=== PATIENT | female | born 1950 | race Caucasian/White ===

== ENCOUNTER 2019-09-29 01:25 | Emergency (ER) | payer MEDICARE, SELFPAY ==
[2019-09-29 01:40] VITALS: BP 139/73; PULSE 93; RESP 20; TEMP 36.8; O2SAT 97; BMI 37.9
--- NOTE | 2019-09-29 02:47 | XRR_ITS ---
PROCEDURE INFORMATION: Exam: XR Left Humerus Exam date and time: 09/29/2019 3:54 AM Age: 68 years old Clinical indication: Injury or trauma; Fall; Initial encounter; Blunt trauma (contusions or hematomas; Arm, upper; Injury date: 09/29/19; Injury details: PT fell; C/O left shoulder pain. Left hand feels numb and tingling TECHNIQUE: Imaging protocol: XR Left humerus Views: AP internal and external rotation and scapular Y-views views. COMPARISON: No relevant prior studies available. FINDINGS: Bones/joints: No acute bony abnormality identified. Mild hypertrophic changes of the acromioclavicular joint. Soft tissues: Normal. XR/[place] [id number] IMPRESSION: 1. No acute bony injury identified. 2. Acromioclavicular arthrosis.
--- NOTE | 2019-09-29 03:11 | W.ED.FALL ---
HPI - Fall General: Chief Complaint: Fall Stated Complaint: L SHOULDER PAIN/FALL Time Seen by Provider: 09/29/19 02:40 History of Present Illness: HPI Narrative: 68-year-old lady who fell at home. She fell forward and catching herself felt her left shoulder pop back . She then felt it slide forward what she describes back into place. After going to bed, she felt it slide out again. It improved with being in a sling at home. She called a friend and had her bring her to the ER. She states that her whole hand on the left side feels a bit numb/tingly. complaint: fall Onset (ago): hour(s) Fall from: standing Fall witnessed: no Place fall occurred: home Loss of consciousness: None Prolonged down time: no Symptoms prior to fall: none Context: tripped/slipped Location of injury - extremities: Left: shoulder Severity: moderate Associated symptoms-after fall: Reports numbness and weakness; Denies chest pain, headache(s), lightheadedness, neck pain or short of breath Review of Systems Const: Denies: fever(s) Eyes: Denies: change in vision ENMT: Denies: hoarseness Card: Denies: chest pain or lightheadedness Resp: Denies: dyspnea, productive cough or hemoptysis Musc: Denies: neck pain Neuro: Denies: headache(s) Physical Exam Const: GENERAL APPEARANCE: well developed ORIENTATION/CONSCIOUSNESS: Yes oriented to person, Yes oriented to place and Yes oriented to time HENMT: COMMON NORMALS: normocephalic, external ears normal and Normal external nose present HEAD & SCALP: normocephalic FACE & SINUS: normal facial exam NOSE: Normal external nose present and No nasal discharge present EXTERNAL EAR: Yes external ears normal MOUTH: tongue normal Eye: COMMON NORMALS: Equal, round and reactive pupils present, EOMs intact bilaterally and conjunctivae normal EYELID: eyelids normal CONJUNCTIVA: Yes conjunctivae normal PUPIL: Yes Equal, round and reactive pupils present Neck/C-Spine: COMMON NORMALS: full ROM GENERAL: No tracheal deviation CERVICAL SPINE: Yes normal cervical lordosis and No Cervical spine tenderness Chest: COMMONS NORMALS: normal inspection of the chest CHEST: No tenderness Resp: COMMON NORMALS: clear to auscultation bilaterally EFFORT & INSPECTION: No tachypneic, No respiratory distress, No retractions, No uses accessory muscles and No tracheal deviation AUSCULTATION: clear to auscultation bilaterally, no rhonchi, no wheezes and lung sounds not diminished Cardio: COMMON NORMALS: regular rate and regular rhythm RATE: regular rate RHYTHM: regular rhythm HEART SOUNDS: no murmurs PERIPHERAL PULSES: radial pulses present GI: INSPECTION: No abdominal distension AUSCULTATION: No Hyperactive bowel sounds present and No Hypoactive bowel sounds present PALPATION: No Guarding due to palpation present (GI) and No Rigid due to palpation PERCUSSION: no dullness to percussion and no tympanic to percussion : COMMON NORMALS: Yes no CVA tenderness BLADDER/KIDNEY EXAM: Yes no CVA tenderness Back/Pelvis: COMMON NORMALS: no CVA tenderness Extremity: OTHER: Examination left shoulder/arm reveals tenderness over the anterior arm. There is tenderness to the anterior shoulder as well. There is no significant deformity. There is no ecchymosis. Range of motion is limited by pain Neuro: SENSORIUM/ORIENTATION: Yes oriented to person, Yes oriented to place and Yes oriented to time Course Vital Signs: Vital signs: Vital Signs Temperature 98.2 F 09/29/19 01:40 Pulse Rate 93 09/29/19 01:40 Respiratory Rate 20 H 09/29/19 01:40 Blood Pressure 139/73 09/29/19 01:40 Pulse Oximetry 97 09/29/19 01:40 MDM - Fall MDM Narrative: Medical decision making narrative: X-rays show an intact glenohumeral joint without fracture. As far as her pain location, the top of the differential would be a biceps strain Discharge Plan Discharge Patient Disposition: Home, Self-Care Clinical Impression: Strain of biceps brachii Condition: Stable Discharge Orders: Discharge Order (Routine); Ordered 09/29/19 Ordered By: Ricardo Cortes Referrals: Bethel Carpio MD [Primary Care Provider] - 4-7 days Discharge Diet: Usual diet Discharge Activity: Limit activity as instructed Patient Instructions: Shoulder Sprain (ED) Activity Restrictions/Additional Instructions: Sling the shoulder up to 5 days. After this, movement is advised. Ice will help with pain. Return for worsening pain, excruciating pain with movement of fingers, development of fever, chest discomfort, other concerning symptoms Coding Level of Care Code ED Jukebox Checker for Chg Fwd Exam Comprehensive
[2019-09-29 04:18] VITALS: BP 121/76; PULSE 92; RESP 18; TEMP 36.6; O2SAT 96
== END 2019-09-29 04:21 | disposition home or self-care (01) ==
PROVIDERS: Emergency Provider Emergency Medicine; PCP Family Medicine
DX: S46.212A Strain of muscle, fascia and tendon of other parts of biceps, left arm, initial encounter (principal); W19.XXXA Unspecified fall, initial encounter
CPT/HCPCS: 12345; 73060; 99282

== ENCOUNTER 2020-04-02 09:47 | Outpatient (CLI) | payer MEDICARE, SELFPAY ==
--- NOTE | 2020-04-02 | XR_ITS ---
WS: [id number] SCREENING DEXA SCAN [facility] CLINICAL INFORMATION: POST MENOPAUSE COMPARISON: None. FINDINGS: The L1-L4 bone mineral density measures 1.266 g/cm2. This corresponds to a T score score of 0.7 and Z score of 1.2. Left femoral neck bone mineral density measures 1.151 g/cm2. This corresponds to a T score of 1.1 and Z score of 1.7. Right femoral neck bone mineral density measures 1.028 g/cm2. This corresponds to a T score 0.2of and Z score of 0.8. Mean femoral neck bone mineral density measures 1.089 g/cm2. This corresponds to a T score of 0.6 and Z score of 1.2. XR/XR DEXA axial skeleton* 81616 IMPRESSION: Normal bone mineralization. Patient's FRAX calculated 10 year probability for major osteoporotic fracture i s 7.4 % and osteoporotic hip fracture is 0.5%.
== END 2020-04-02 09:48 | disposition home or self-care (01) ==
LOC: RADWPI 09:53
PROVIDERS: PCP Family Medicine; Visit Provider Family Medicine
DX: Z78.0 Asymptomatic menopausal state (principal)
CPT/HCPCS: 77080

== ENCOUNTER 2020-05-25 04:42 | Emergency (ER) | payer MEDICARE, SELFPAY ==
[2020-05-25 04:52] VITALS: BP 139/96; PULSE 87; RESP 18; TEMP 36.2; O2SAT 98; BMI 37.9
[2020-05-25] MEDS: lidocaine 1% INJ 20 mL INJECTION (05:56)
--- NOTE | 2020-05-25 05:56 | W.ED.WOUNDLC ---
HPI - Wound/Laceration General: Chief Complaint: Wound/Laceration Stated Complaint: thumb lac Time Seen by Provider: 05/25/20 04:57 History of Present Illness: HPI narrative: 69-year-old female presenting after slipping in her bathroom, cutting her left thumb. She is on Xarelto, and has had continued bleeding. Onset (ago): minute(s) Extremity Location: Left: hand Place: home Patient tetanus UTD: Yes Context: accidental Associated symptoms: Reports no associated symptoms; Denies chills or fever(s) Review of Systems Const: Denies: fever(s) or chills Eyes: Denies: change in vision Card: Denies: chest pain Resp: Denies: dyspnea PFSH ED PFSH: Medical History (Updated 05/25/20 @ 05:41 by Ricardo Cortes DO) Chest pain Family History Grandfather Myocardial infarction Other Cancer Stroke Social History Smoking and tobacco status: former smoker Physical Exam Const: COMMON NORMALS: no acute distress and patient oriented x3 Eye: COMMON NORMALS: Equal, round and reactive pupils present and EOMs intact bilaterally PUPIL: Yes Equal, round and reactive pupils present Chest: COMMONS NORMALS: normal inspection of the chest Resp: COMMON NORMALS: normal respiratory effort, No retractions, No use of accessory muscles and clear to auscultation bilaterally AUSCULTATION: clear to auscultation bilaterally Cardio: COMMON NORMALS: regular rate and regular rhythm RATE: regular rate RHYTHM: regular rhythm Extremity: NARRATIVE EXTREMITY EXAM: 1.5 cm laceration to the palmar thumb on the left Neuro: COMMON NORMALS: patient oriented x3 Procedures Laceration Laceration 1: Site: hand Side (If applicable): left Size (cm): 1.5 Description: linear Depth: simple, single layer Local Anesthetic: lidocaine 1% Amount of anesthesia used (mL): 3 Pre-repair: wound explored, irrigated extensively and deep structures intact Skin layer closed with: nylon Size (cm): 4-0 Number of sutures: 3 Technique: simple, interrupted Course Vital Signs: Vital signs: Vital Signs Temperature 97.2 F L 05/25/20 04:52 Pulse Rate 87 05/25/20 04:52 Respiratory Rate 18 05/25/20 04:52 Blood Pressure 139/96 05/25/20 04:52 Pulse Oximetry 98 05/25/20 04:52 Discharge Plan Discharge Patient Disposition: Home Clinical Impression: Laceration Condition: Stable Prescriptions: No Action Allergy Relief (cetirizine) 10 mg capsule 10 mg PO DAILY RF: 0 diphenhydramine HCl [Benadryl] 25 mg capsule 25 mg PO .HS RF: 0 sumatriptan succinate [Imitrex] 100 mg tablet See Rx Instructions PO .COMPLEX RF: 0 magnesium oxide 200 mg magnesium tablet 200 mg PO BID RF: 0 potassium gluconate 600 mg (99 mg) tablet 600 mg PO DAILY RF: 0 propranolol 20 mg tablet 20 mg PO BID RF: 0 ranitidine HCl 150 mg tablet 150 mg PO DAILY RF: 0 simvastatin 40 mg tablet 40 mg PO DAILY RF: 0 acetaminophen [Tylenol Arthritis Pain] 650 mg tablet extended release 650 mg PO Q12H RF: 0 fenofibrate nanocrystallized [Tricor] 48 mg tablet 48 mg PO DAILY RF: 0 Xarelto 20 mg tablet 20 mg PO DAILY RF: 0 ibuprofen 200 mg capsule 200 mg PO Q6H PRNRF: 0 Excedrin Extra Strength 250-250-65 mg tablet 1 tab PO Q6H PRNRF: 0 calcium carbonate [Calcium 600] 600 mg calcium (1,500 mg) tablet 600 mg PO DAILY RF: 0 vitamin B complex [B Complex-Vitamin B12] Tablet 1 tab PO DAILY RF: 0 gelatin 650 mg capsule 1,300 mg PO DAILY RF: 0 nitroglycerin 0.4 mg tablet, sublingual 0.4 mg SUBLINGUAL Q5M PRN (Reason: chest pain) Qty: 50 RF: 2 Discharge Orders: Discharge ED (Routine); Ordered 05/25/20 Ordered By: Ricardo Cortes Referrals: Bethel Carpio MD [Primary Care Provider] - Patient Instructions: Opioid Safety Coding Level of Care Code ED [employer] Powerplant Supervisor for Suze Rachel
[2020-05-25] MEDS: neomycin-poly-bacitracin oint 0.9 gm Pkt 1 APPLIC TOPICAL (05:59)
[2020-05-25 06:04] VITALS: BP 138/94; PULSE 85; RESP 17; O2SAT 99
== END 2020-05-25 06:04 | disposition home or self-care (01) ==
PROVIDERS: Emergency Provider Emergency Medicine; PCP Family Medicine
DX: S61.012A Laceration without foreign body of left thumb without damage to nail, initial encounter (principal); Z87.891 Personal history of nicotine dependence; W01.0XXA Fall on same level from slipping, tripping and stumbling without subsequent striking against object, initial encounter
CPT/HCPCS: 12001; 99282

== ENCOUNTER → 2021-07-20 14:25 | Outpatient (BNVA) | payer MEDICARE, SELFPAY | PROVIDERS: PCP Family Medicine; Visit Provider Internal Medicine | DX: I48.21 Permanent atrial fibrillation (principal); R07.9 Chest pain, unspecified; Z87.891 Personal history of nicotine dependence | CPT/HCPCS: 99213; 99214 ==

== ENCOUNTER 2021-09-02 06:56 | Outpatient (CLI) | payer MEDICARE, SELFPAY ==
[2021-09-02 07:22] VITALS: BMI 40.3
--- NOTE | 2021-09-02 07:26 | ECG_ITS ---
[facility] Test Date: 2021-09-02 Pat Name: Maryana German Department: Room: Gender: Female Dehairer: Zena Londono : 1950 Requested By: Bethel Rizo Order Number: [id number] Lionel MD: Chapis Pierre M.D. Interpretive Statements NAME OF STUDY: LEXISCAN SESTAMIBI STRESS TEST INDICATION: Chest Pain PROCEDURE: At the baseline, the blood pressure was 114/74 mmHg, oxygen saturation 97% with a heart rate of 95 bpm. The electrocardiogram showed atrial fibrillation with heart rate of 95 bpm, normal axis. Poor anterior R wave progression. Nonspecific ST changes. The Lexiscan was infused over a period of 20 seconds. A total of 0.4 milligrams of Lexiscan was infused. The stress phase was continued for a total of 5 minutes. Heart rate at the end of the stress phase was 112 bpm, oxygen saturation 97% with a blood pressure of 104/71 mmHg. The EKG at the peak infusion revealed atrial fibrillation with rapid ventricle response. No significant ST-T wave changes. The study was terminated due to protocol completion. Sestamibi was injected 20 seconds after the Lexiscan infusion. Blood pressure at the end of the recovery phase was 117/76 mmHg, oxygen saturation 87% with a heart rate of 108 beats per minute. CONCLUSION: 1. No significant EKG changes with the LexiScan infusion. 2. No LexiScan induced chest pain or cardiac arrhythmia. 3. Normal blood pressure and heart rate response. 4. Sestamibi/sestamibi perfusion scan pending; see separate report. Electronically Signed On 09-06-2021 15:40:56 CDT by Chapis Pierre M.D. [id number]
--- NOTE | 2021-09-02 07:27 | NMCV_ITS ---
NM cecelia perf SPECT r/s* [id number] Maryana German Age: 70 Gender: F : 1950 Exam Date: 09/02/2021 07:27 Ordering Phys: Bethel Carpio MD Technologist: DOUG Hodges Exam Location: [facility] Indications: CHEST PAIN STRESS TEST [facility] IMAGE PROTOCOL Rest/Stress 1 Lexiscan Day Radiopharmaceutical Dose (mCi) Administration Site Administered by Rest: Tc-99m 10.8 IV DOUG Hoffmann Sestamibi Stress:Tc-99m 32.5 IV DOUG Hoffmann Sestamibi Rest: 02-Sep-2021 60 Discovery 630 Stress: 02-Sep-2021 30 Discovery 630 0.4mg Lexiscan. Supine position only as patient was unable to lay prone. SPECT RESULTS Technical Quality: Excellent Raw Data Analysis: Normal Image Corrections: No attenuation or motion correction applied Summed Stress Score: 3 Summed Rest Score: 0 Summed Difference Score: 3 PERFUSION FINDINGS Small sized perfusion abnormalityof mild severity of apical lateral wall on stress images. FUNCTIONAL RESULTS (calculated via Gated SPECT) Stress Image LV EF (%): 83 Stress EDV (mL):80 TID: 1.03 Stress ESV (mL):14 FUNCTIONAL FINDINGS: The left ventricle is normal in size. Transient Ischemia Dilatation of 1. There is normal left ventricular systolic function. The left ventricular ejection fraction is normal with a value of 83%. There is normal left ventricular wall thickening. IMPRESSIONS 1. Small sized reversible perfusion abnormalityof mild severity of apical lateral wall. This may represent small area of ischemia in LAD/circumflex artery territory. 2. Overall left ventricular systolic function is normal without regional wall motion abnormalities, LVEF=83%. 3. EKG portion of the study will be reported separately. Chapis Pierre MD (Electronically Signed) Final Date: 06 September 2021 00:35 S
[2021-09-02] MEDS: regadenoson 0.4 Mg/5 ml Syringe IVP (09:17)
[2021-09-02 09:25] VITALS: BP 105/73; PULSE 106
== END 2021-09-02 06:57 | disposition home or self-care (01) ==
PROVIDERS: PCP Family Medicine; Visit Provider Internal Medicine
DX: R07.9 Chest pain, unspecified (principal)
CPT/HCPCS: 78452; 93017; A9500; J2785

== ENCOUNTER → 2022-01-31 09:16 | Outpatient (BNVA) | payer MEDICARE, SELFPAY | PROVIDERS: PCP Family Medicine; Visit Provider Student in an Organized Health Care Education/Training Program | DX: M18.11 Unilateral primary osteoarthritis of first carpometacarpal joint, right hand (principal) | CPT/HCPCS: 73130 ==

== ENCOUNTER 2022-01-31 14:00 | Outpatient (CLI) | payer MEDICARE, SELFPAY | END 2022-01-31 14:01 | disposition home or self-care (01) | LOC: SPT 14:33 | PROVIDERS: PCP Family Medicine; Visit Provider Student in an Organized Health Care Education/Training Program | DX: Z46.89 Encounter for fitting and adjustment of other specified devices (principal); M79.642 Pain in left hand | CPT/HCPCS: 20600; 97760; 99204; J3301; L3924 ==

== ENCOUNTER → 2022-08-01 12:52 | Outpatient (BNVA) | payer MEDICARE, SELFPAY | PROVIDERS: PCP Family Medicine; Visit Provider Internal Medicine | DX: I48.21 Permanent atrial fibrillation (principal); R07.9 Chest pain, unspecified; Z79.01 Long term (current) use of anticoagulants; Z87.891 Personal history of nicotine dependence | CPT/HCPCS: 99214 ==

== ENCOUNTER → 2023-02-08 13:46 | Outpatient (BNVA) | payer MEDICARE, SELFPAY | PROVIDERS: PCP Family Medicine; Visit Provider Nurse Practitioner Family | DX: I48.21 Permanent atrial fibrillation (principal); Z79.01 Long term (current) use of anticoagulants; Z87.891 Personal history of nicotine dependence | CPT/HCPCS: 36415; 80048; 83880; 93005; 99214 ==

== ENCOUNTER → 2023-03-06 13:52 | Outpatient (BNVA) | payer MEDICARE, SELFPAY | PROVIDERS: PCP Family Medicine; Visit Provider Surgery | DX: K64.9 Unspecified hemorrhoids (principal) | CPT/HCPCS: 99203 ==

== ENCOUNTER → 2023-05-08 12:38 | Outpatient (BNVA) | payer MEDICARE, SELFPAY | PROVIDERS: PCP Family Medicine; Visit Provider Internal Medicine | DX: I48.21 Permanent atrial fibrillation (principal); R07.9 Chest pain, unspecified; Z87.891 Personal history of nicotine dependence; Z79.01 Long term (current) use of anticoagulants | CPT/HCPCS: 99214 ==

== ENCOUNTER → 2023-10-11 13:11 | Outpatient (BNVA) | payer MEDICARE, SELFPAY | PROVIDERS: PCP Family Medicine; Visit Provider Internal Medicine | DX: I48.21 Permanent atrial fibrillation (principal); R07.9 Chest pain, unspecified; Z87.891 Personal history of nicotine dependence; Z79.01 Long term (current) use of anticoagulants | CPT/HCPCS: 99214 ==